=== PATIENT | male | born 1955 | race Caucasian/White ===

== ENCOUNTER 2018-05-26 17:30 | Outpatient (RCR) | payer BC, SELFPAY | END 2018-05-26 17:31 | disposition home or self-care (01) | LOC: PT 17:30 | PROVIDERS: Visit Provider Neurological Surgery | DX: M47.812 Spondylosis without myelopathy or radiculopathy, cervical region (principal) | CPT/HCPCS: 97010; 97012; 97014; 97110; 97140; 97163; G0283 ==

== ENCOUNTER → 2018-10-24 07:18 | Outpatient (CLI) | payer BC, SELFPAY ==
[2018-10-24 07:36] LABS: Basophils % 0.9 % (0.1-2.0); Eosinophils # 0.1 K/mm3 (0.0-0.4); Eosinophils % 2.2 % (0.1-12.0); Hematocrit 42.4 % (42.0-52.0); Hemoglobin 14.1 g/dL (14.1-18.0); Lymphocytes # 1.3 K/mm3 (0.7-4.5); Lymphocytes % 31.4 % (10-50); Mean Corpuscular HGB Conc 33.3 g/dL (31.8-35.4); Mean Corpuscular Hemoglobin 29.9 pg (27.0-31.2); Mean Corpuscular Volume 89.6 fl (80-94); Mean Platelet Volume 6.2 fl (7.4-10.4); Monocytes # 0.3 K/mm3 (0.1-1.0); Monocytes % 6.3 % (1.7-9.3); Neutrophils # 2.4 K/mm3 (1.8-7.8); Neutrophils % 59.2 % (37.0-80.0); Platelet Count 233 K/mm3 (142-424); Red Blood Count 4.73 M/mm3 (4.60-6.20); Red Cell Distribution Width 13.4 % (11.5-17.5); White Blood Count 4.1 K/mm3 (4.8-10.8)
[2018-10-24 08:37] LABS: Alanine Aminotransferase 35 U/L (12-78); Albumin Level 4.1 gm/dL (3.4-5.0); Albumin/Globulin Ratio 1.5 (1.1-1.8); Alkaline Phosphatase 63 U/L (46-116); Anion Gap 12.2 mEq/L (5-15); Aspartate Amino Transferase 19 U/L (15-37); Bilirubin,Total 0.4 mg/dL (0.2-1.0); Blood Urea Nitrogen 14 mg/dL (7-18); Calcium 8.8 mg/dL (8.5-10.1); Carbon Dioxide 30 mmol/L (21.0-32.0); Chloride 104 mmol/L (98-107); Chol/HDL Ratio 4.1 (1-3.5); Cholesterol 239 mg/dL (140-200); Creatinine,Serum 0.85 mg/dL (0.70-1.30); Estimated Glomerular Filt Rate 92 ml/min (>60); Free Thyroxine Index 2.3 ug/dL (5.93-13.13); GFR (African American) 111 ML/MIN (>60); Globulin 2.8 gm/dl (1.3-3.2); Glucose 100 mg/dL (74-106); HDL Cholesterol 59 mg/dL (27-67); LDL Cholesterol 169 mg/dL (0-130); Potassium 4.2 mmoL/L (3.5-5.1); Prostate Specific Ag Screen 3.6 ng/mL (0.0-4.0); Sodium 142 mmol/L (136-145); T4 (Thyroxine) 6.8 ug/dl (4.7-13.3); Thyroid Stimulating Hormone 1.55 uIU/ml (0.358-3.740); Total Protein,Serum 6.9 gm/dL (6.4-8.2); Triglycerides 54 mg/dL (30-200); Triiodothryronine (T3) Uptake 34 % (31-39); VLDL Cholesterol 11 mg/dL (0-40)
[2018-10-25 21:28] LABS: Rapid Plasma Reagin Ab Titer Non Reactive (NonRea<1:1); Vitamin B12 659 pg/mL (232-1245)
[2018-10-26 14:11] LABS: Vitamin D 25 Hydroxy 28.1 ng/mL (30.0-100.0)
== END ==
PROVIDERS: Visit Provider Internal Medicine Adolescent Medicine
DX: Z00.00 Encounter for general adult medical examination without abnormal findings (principal); R20.2 Paresthesia of skin
CPT/HCPCS: 36415; 80053; 80061; 82607; 82652; 84436; 84443; 84479; 85025; 86592; G0103

== ENCOUNTER → 2019-06-25 10:51 | Outpatient (CLI) | payer BC, SELFPAY ==
--- NOTE | 2019-06-25 11:01 | XR_ITS ---
PROCEDURE: XR LUMBAR SPINE MIN 4V CLINICAL INDICATION: LOW BACK PAIN with radiation down left leg,LUMBAR FACET ARTHROPATHY COMPARISON: DIRECTOR OF EDUCATION/O MRI-L-SPINE W/O from 09/30/2014 FINDINGS: There is normal curvature and alignment. L1 through L5 appear intact. Disc spaces are well maintained throughout except for minor narrowing at the L1-2 level. There is no pars defect. There are minor hypertrophic facet changes at the L4-5 and L5-S1 levels. The SI joints are normal. IMPRESSION: Mild degenerate facet changes lower lumbar spine along with minor degenerative disc disease L1-2 Dictated by: Dr. Clyde Reid MD 06/25/2019 11:27 Signed by: <Electronically signed by Dr. Clyde Reid MD in [place]> 06/25/2019 11:27
== END ==
PROVIDERS: PCP Internal Medicine Adolescent Medicine; Visit Provider Nurse Practitioner Family
DX: M54.42 Lumbago with sciatica, left side (principal); M47.816 Spondylosis without myelopathy or radiculopathy, lumbar region
CPT/HCPCS: 72110

== ENCOUNTER 2019-07-21 10:00 | Outpatient (RCR) | payer BC, SELFPAY ==
--- NOTE | 2019-06-08 13:41 | HMH.PTOPEV ---
PT Outpatient Evaluation Rehab PT Outpatient Evaluation Start: 06/08/19 10:57 Freq: Status: Active Protocol: Document 06/08/19 13:31 NICOLASAWIN (Rec: 06/08/19 13:41 SE [id number]) Electronically Signed By Ash Tai, PT 06/08/19 13:31 Outpatient Therapy Subjective History Subjective History This is the initial outpatient Physical therapy evaluation for Claudia Lee. Pt is a 63 y/o male referred to PT for c/o LBP w/ LLE pain and paresthesia. Pt reports pain began ~ may 28 but he does not remember any trauma. Pt atates he had some time off from work and was doing stuff around the house and began noticing pain when he returned to work. Pt reports on the he was in so much pain he felt locked up in his back . Pt reports pain in umbosacral area and pain into LLE to knee. Chief Complaint Pain,Paresthesia Symptom Type Ache,Throb,Sharp,Dull,Stabbing ,Burning,Numbness,Tingling Symptoms Relieved By Rest/Positioning Symptoms Aggravated By Sitting,Standing,Physical Activity,Walking,Lifting Prior Functional Limitations None Current Functional Limitations Lifting,Housework,Driving, Sleeping,Standing,Sitting, Recreation Activity,Walking Symptom Description Constant but Variable Level of pain today (0-10) 5 Pain scale - at its best (0-10) 3 Pain scale - at its worst (0-10) 8 Lumbopelvic Eval Posture Thoracic Spine Posture Standing Position Neutral Lumbar Spine Posture Standing Position Neutral Assistive device Assistive Devices None / NA Palapation tenderness left lumbar spinal tenderness Yes paraspinal tenderness Yes buttock tenderness Yes Lumbar/Sacral Palpation Findings Tenderness Accessory Movement L4 right L5 right Range of Motion Lumbar Spine Active Flexion Range of 80 Motion (degrees) Lumbar Spine Active Extension Range of 10 w/ pain Motion (degrees) Left Lumbar Spine Lateral Flexion Active 25 Range of Motion (degrees) Right Lumbar Spine Lateral Flexion 30 w/ pain Active Range of Motion (degrees) Lumbar Spine ROM Limitations Pain DTR
== END 2019-07-21 10:05 | disposition home or self-care (01) ==
LOC: PT 10:00
PROVIDERS: Visit Provider Internal Medicine Adolescent Medicine
DX: M54.42 Lumbago with sciatica, left side (principal)
CPT/HCPCS: 97010; 97012; 97014; 97110; 97140; 97163; 97164; G0283

== ENCOUNTER → 2019-09-21 15:36 | Outpatient (POV) | payer BC, SELFPAY | PROVIDERS: Visit Provider Dermatology | DX: Z00.00 Encounter for general adult medical examination without abnormal findings (principal) ==

== ENCOUNTER → 2020-03-07 10:46 | Outpatient (POV) | payer BC, SELFPAY | PROVIDERS: PCP Internal Medicine Adolescent Medicine; Visit Provider Physician Assistant | DX: Z00.00 Encounter for general adult medical examination without abnormal findings (principal) ==

== ENCOUNTER → 2020-05-04 14:13 | Outpatient (CLI) | payer BC, SELFPAY ==
[2020-05-06 06:13] LABS: PSA, Free 0.73 ng/mL; Prostate Specific Ag 3.1 ng/mL (0.0-4.0)
== END ==
PROVIDERS: Visit Provider Urology
DX: N40.0 Benign prostatic hyperplasia without lower urinary tract symptoms (principal); R97.20 Elevated prostate specific antigen [PSA]
CPT/HCPCS: 36415; 84153; 84154

== ENCOUNTER 2020-07-28 09:00 | Outpatient (RCR) | payer OTHER, SELFPAY | END 2020-07-28 09:05 | disposition home or self-care (01) | LOC: PT 09:00 | PROVIDERS: Visit Provider Orthopaedic Surgery | DX: M19.011 Primary osteoarthritis, right shoulder (principal) | CPT/HCPCS: 97010; 97014; 97016; 97033; 97110; 97112; 97140; 97163; 97164; G0283 ==

== ENCOUNTER → 2020-10-31 10:36 | Outpatient (CLI) | payer BC, SELFPAY ==
[2020-11-01 09:51] LABS: PSA, Free 0.44 ng/mL
== END ==
PROVIDERS: Visit Provider Urology
DX: R97.20 Elevated prostate specific antigen [PSA] (principal)
CPT/HCPCS: 36415; 84153; 84154

== ENCOUNTER → 2021-07-31 10:33 | Outpatient (CLI) | payer BC, SELFPAY | PROVIDERS: PCP Internal Medicine Adolescent Medicine; Visit Provider Nurse Practitioner | DX: Z20.822 Contact with and (suspected) exposure to COVID-19 (principal) | CPT/HCPCS: C9803; U0003; U0005 ==

== ENCOUNTER → 2021-11-26 15:41 | Outpatient (CLI) | payer BC, SELFPAY | PROVIDERS: Visit Provider Nurse Practitioner | DX: Z20.822 Contact with and (suspected) exposure to COVID-19 (principal) | CPT/HCPCS: C9803; U0003; U0005 ==

== ENCOUNTER → 2022-02-12 09:51 | Outpatient (POV) | payer BC, SELFPAY | PROVIDERS: Visit Provider Dermatology | DX: Z00.00 Encounter for general adult medical examination without abnormal findings (principal) ==

== ENCOUNTER → 2022-06-11 10:49 | Outpatient (POV) | payer BC, SELFPAY | PROVIDERS: Visit Provider Dermatology | DX: Z00.00 Encounter for general adult medical examination without abnormal findings (principal) ==

== ENCOUNTER → 2023-08-19 09:54 | Outpatient (POV) | payer BC, SELFPAY ==
--- OUTSIDE RECORDS SUMMARY | 2023-08-19 09:57 | XMS_ITS | Patient Health Record ---
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 Name Role Phone Ricardo Walters Primary Care Provider ALLERGIES Allergen (clinical drug ingredient) Drug/Non Drug Allergy documented on EMR Reaction Allergy Type Onset Date Status sulfamethoxazole / trimethoprim bactrim (uncoded) Unknown Allergy Active Percocet (uncoded) Unknown Allergy Active Demerol HCl Unknown Drug Allergy Activ e Keflex muscle spasms Drug Allergy Act herb Septra Unknown Drug Allergy Active clarithromycin Biaxin Unknown Drug Allergy Ac tive doxycycline doxycycline Unknown Drug Allergy Act herb penicillin Unknown Drug Allergy Active pravastatin pravastatin muscle spasms Drug Allergy Active Sulfac 10% Unknown Drug Allergy Active RESULTS Component Value Reference Range Notes CBC With Platelet And Differ ential Reviewed date:01/01/2023 09:35:41 AM Interpretation: Performing Lab: Notes/Report: CLIA: [id number] Joe Ornelas MD, [employer] [address] [facility] , [address], [place] [address] Test performed by [employer], to be WBC 4.2 3.8-11.5 K/uL Red Blood Cell Count (RBC) 4.59 4.20-5.70 M/mm3 Hemoglobin (Hgb) 14.1 13.1-17.5 gm/dL Hematocrit (HCT) 41.0 39.0-51.0 % MCV 89.3 79.0-99.0 fL MCH 30.7 26.9-35.0 pg MCHC 34.4 30.4-34.8 g/dL RDW 42.1 38.2-53.0 fL Platelet Count 223 137-397 K/cumm Neutrophils Automated 48.5 41.0-77.0 % Lymphocytes Automated 35.8 14.0-48.0 % Monocytes Automated 11.9 4.0-13.0 % Eosinophils Automated 2.9 0.0-8.0 % Basophils Automated 0.7 0.0-1.5 % Immature Granulocyte Automated 0.2 0.0-1.0 % Comprehensive Metabolic Pane l (CMP) Reviewed date:01/01/2023 09:35:41 AM Interpretation: Performing Lab: Notes/Report: Test performed by [facility] [address] [place] [address] , [address], [place] [address] Joe Ornelas MD, [employer] CLIA: [id number] Sodium 139 135-145 mEq/L Potassium 4.2 3.5-5.3 mEq/L Chloride 101 97-108 mEq/L CO2 30 22-32 mEq/L Glucose 96 65-99 mg/dL BUN 11 8-23 mg/dL Creatinine 0.86 0.70-1.30 mg/dL Calcium 9.8 8.6-10.4 mg/dL Protein 6.8 6.0-8.3 g/dL Albumin 4.9 3.5-5.3 g/dL Alkaline Phosphatase 61 40-129 IU/L ALT (SGPT) 24 <5-55 IU/L AST (SGOT) 24 <5-46 IU/L Bilirubin, Total 0.4 <0.2-1.2 mg/dL A/G Ratio 2.6 1.1-2.5 mg/dL Lipid Panel Reviewed date:01/01/2023 09:35:41 AM Interpretation: Performing Lab: Notes/Report: Joe Ornelas MD, [employer] CLIA: [id number] [address] [place] [address] , [place] [address] Test performed by [facility] Cholesterol 252 <200 mg/dL Triglycerides 212 <150 mg/dL HDL Cholesterol 47 >39 mg/dL Cholesterol / HDL Ratio 5.36 0.00-4.99 Ratio Non-HDL Cholesterol 205 <130 mg/dL LDL Cholesterol (Calculation) 163 <130 mg/dL LDL Cholesterol Levels* Less than 100 mg/dL Optimal 100 to 129 mg/dL Near Optimal/ Above Optimal 130 to 159 mg/dL Borderline High 160 to 189 mg/dL High 190 mg/dL and above Very High * Categories as recommended by the 2004 ATPIII guidelines LDL/HDL Ratio 3.5 <3.3 Ratio _ LDL Cholesterol Patient History _ Test Date: 12/30/2022 LDL Results: 163 Units: mg/dL % Change: - _ PSA Reviewed date:01/01/2023 09:35:41 AM Interpretation: Performing Lab: Notes/Report: Test performed by [facility] [address] [place] [address] [place] [address] Joe Ornelas MD, [employer] CLIA: [id number] PSA 1.080 <4.001 ng/mL This test is performed by the Pete ECLIA methodology. Values obtained with different assay methods or kits cannot be directly compared. Estimated Glomerular Filtrat ion Rate Reviewed date:01/01/2023 09:35:41 AM Interpretation: Performing Lab: Notes/Report: Test performed by [facility] [address] [place], [place] [address] [place] [place] [address] Joe Ornelas MD, [employer] CLIA: [id number] Estimated GFR (Black) 105 >59 mL/min/1.73m2 Estimated GFR (Other) 91 >59 mL/min/1.73m2 GFR Categories in Chronic Kidney Disease (CKD) GFR Category GFR (mL/min/1.73 sq. meters) Interpretation G1 90 or greater Normal or high* G2 60-89 Mild decrease* G3a 45-59 Mild to moderate decrease G3b 30-44 Moderate to severe decrease G4 15-29 Severe decrease G5 14 or less Kidney failure *In the absence of kidney damage, neither GFR category G1 or G2 fulfill the criteria for CKD (Kidney Int Suppl 2013; 3.1-150) The CKD-EPI calculation is intended for use in patients 18 years of age and older. Decreased calculation accuracy may be seen in patients taking medications that affect renal excretion, or in those patients with extremes in muscle mass or diet. LIPID PANEL, STANDARD (7600) Reviewed date:04/25/2023 02:37:08 PM Interpretation: Performing Lab:[facility] [employer] [id number] [facility] [email or web address], Dat [id number] [employer] Notes/Report: NON-FASTING; NON-FASTING; NON-FASTING; NON-FASTING CHOLESTEROL, TOTAL 202 <200 mg/dL HDL CHOLESTEROL 48 > OR = 40 mg/dL TRIGLYCERIDES 234 <150 mg/dL If a non-fasting specimen was collected, consider repeat triglyceride testing on a fasting specimen if clinically indicated. Cindy et al. J. of Clin. Lipidol. 2015;9:129-169. LDL-CHOLESTEROL 119 Reference range: <100 Desirable range <100 mg/dL for primary prevention; <70 mg/dL for patients with CHD or diabetic patients with > or = 2 CHD risk factors. LDL-C is now calculated using the Osorio-Destiny calculation, which is a validated novel method providing better accuracy than the Friedewald equation in the estimation of LDL-C. Osorio LEON et al. DRE. 2013;310(19): 1919-0536 (http://education.[employer]/faq/FAQ16 4) CHOL/HDLC RATIO 4.2 <5.0 (calc) NON HDL CHOLESTEROL 154 <130 mg/dL (calc) For patients with diabetes plus 1 major ASCVD risk factor, treating to a non-HDL-C goal of <100 mg/dL (LDL-C of <70 mg/dL) is considered a therapeutic option. COMPREHENSIVE METABOLIC PANE L (86345) Reviewed date:04/25/2023 02:37:08 PM Interpretation: Performing Lab:[facility] [employer]) [id number] [employer], Dat [id number] [employer] Notes/Report: NON-FASTING; NON-FASTING; NON-FASTING; NON-FASTING GLUCOSE 99 65-99 mg/dL Fasting reference interval UREA NITROGEN (BUN) 16 7-25 mg/dL CREATININE 0.95 0.70-1.35 mg/dL EGFR 89 > OR = 60 mL/min/1.73m2 The eGFR is based on the CKD-EPI 2020 equation. To calculate the new eGFR from a previous Creatinine or Cystatin C result, go to https://www.kidney.org/p [employer]isma[employer]essionals/ kdoqi/gfr%5Fcalculator BUN/CREATININE RATIO NOT APPLICABLE 6-22 (calc) SODIUM 138 135-146 mmol/L POTASSIUM 4.6 3.5-5.3 mmol/L CHLORIDE 103 98-110 mmol/L CARBON DIOXIDE 30 20-32 mmol/L CALCIUM 9.5 8.6-10.3 mg/dL PROTEIN, TOTAL 7.0 6.1-8.1 g/dL ALBUMIN 4.6 3.6-5.1 g/dL GLOBULIN 2.4 1.9-3.7 g/dL (calc) ALBUMIN/GLOBULIN RATIO 1.9 1.0-2.5 (calc) BILIRUBIN, TOTAL 0.4 0.2-1.2 mg/dL ALKALINE PHOSPHATASE 50 35-144 U/L AST 22 10-35 U/L ALT 23 9-46 U/L CREATINE KINASE, TOTAL (374) Reviewed date:04/25/2023 02:37:08 PM Interpretation: Performing Lab:[facility] [employer] [id number], Dat [id number] [employer] Notes/Report: NON-FASTING; NON-FASTING; NON-FASTING; NON-FASTING CREATINE KINASE, TOTAL 241 44-196 U/L CBC (INCLUDES DIFF/PLT) (639 9) Reviewed date:04/25/2023 02:37:08 PM Interpretation: Performing Lab:[facility] [employer]) [id number], Dat [id number] [employer] Notes/Report: NON-FASTING; NON-FASTING; NON-FASTING; NON-FASTING WHITE BLOOD CELL COUNT 4.5 3.8-10.8 Thousand/ uL RED BLOOD CELL COUNT 4.31 4.20-5.80 Million/uL HEMOGLOBIN 13.1 13.2-17.1 g/dL HEMATOCRIT 40.0 38.5-50.0 % MCV 92.8 80.0-100.0 fL MCH 30.4 27.0-33.0 pg MCHC 32.8 32.0-36.0 g/dL RDW 13.1 11.0-15.0 % PLATELET COUNT 205 140-400 Thousand/uL MPV 9.1 7.5-12.5 fL ABSOLUTE NEUTROPHILS 2619 5365-8486 cells/uL ABSOLUTE LYMPHOCYTES 1510 071-6675 cells/uL ABSOLUTE MONOCYTES 401 200-950 cells/uL ABSOLUTE EOSINOPHILS 72 15-500 cells/uL ABSOLUTE BASOPHILS 32 0-200 cells/uL NEUTROPHILS 58.2 LYMPHOCYTES 30.6 MONOCYTES 8.9 EOSINOPHILS 1.6 BASOPHILS 0.7 MEDICATIONS Medication SIG (Take, Route, Frequency, Duration) Notes Start Date End Date Status BusPIRone Hydrochloride 10 mg 1/2 tab orally three times a day as needed for 90 days Active D 2000 IU 50 mcg 1 tab(s) orally once a day for 30 day(s) 04/25/2023 Active IMMUNIZATIONS Vaccine Route Administration Date Status Comme nts SHINGRIX IM Intramuscular 01/03/2023 Administered SHINGRIX IM Intramuscular 04/23/2023 Administered Prevnar PCV-20 (Pneumococcal conjugate 20) IM Intramuscular 01/03/2023 Administered Influenza-Fluzone 3+years (NON-MEDICARE) IM Intramuscular 08/07/2015 Administered Influenza-Fluzone 3+years (NON-MEDICARE) IM Intramuscular 09/23/2017 Administered Hep A Adult 2 Dose IM Intramuscular 04/17/2019 Administere d FLUZONE 6MO - OLDER IM Intramuscular 07/31/2023 Administer ed Flublok IM Intramuscular 07/13/2020 Administered Flublok IM Intramuscular 08/05/2022 Administered Adacel (Tdap) IM Intramuscular 08/07/2015 Administered SOCIAL HISTORY Sex Assigned At : Social History Observation Description Sex Assigned At Unknown PROBLEMS Problem Type ICD Code Onset Dates Problem Status W/U Status Risk SNOMED Code Notes Problem Anxiety (F41.9) Active confirmed 945386 02 Problem Hyperlipemia, idiopathic familial (E78.5) Active confirmed 482673567 Problem GERD without esophagitis (K21.9) Active confirmed 176897445 Problem Abnormal EKG (R94.31) Active confirmed 545698849 Problem Anxiety, generalized (F41.1) Active confirmed 76155009 Problem Hyperlipidemia, unspecified hyperlipidemia type (E78.5) Active confirmed 71186840 Problem History of malignant melanoma (Z85.820) Active confirmed 578273657 Problem Right axis deviation (R94.31) Active confirmed 36463368 Problem Familial hypercholesterolemia (E78.01) Active confirmed 480275869 Problem Acute bilateral low back pain with left-sided sciatica (M54.42) Active confirmed 068444510 Problem 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) Active confirmed 018852370 Problem Paresthesia of left upper and lower extremity (R20.2) Active confirmed 96289591 Problem Lumbar facet arthropathy (M47.816) Active confirmed 375108308 Problem Metastasis to brain (C79.31) Active confirmed 66383797 VITAL SIGNS Heart Rate 78 /min 08/18/2023 Temperature 98.0 degrees Fahrenheit 08/18/2023 Blood pressure diastolic 84 mm Hg 08/18/2023 Height 6 ft 1 in in 08/18/2023 Blood pressure systolic 122 mm Hg 08/18/2023 Weight 186.9 lbs 08/18/2023 BMI 24.66 kg/m2 08/18/2023 Encounters Encounter Location Date Provider Diagnosis [facility] [address] [facility] [address] [place] [address] 12/30/2022 Ricardo Besson [facility] [address] [facility] [address] [place] [address] 07/21/2023 Ricardo Besson [facility] [address] [facility] [address] [place] [address] 01/03/2023 Ricardo Besson Familial hypercholesterolemia E78.01 ; Anxiety, generalized F41.1 ; Other specified transient cerebral ischemias G45.8 ; Routine medical exam Z00.00 and Encounter for immunization Z23 [facility] [address] [facility] [address] [place] [address] 04/23/2023 Ricardo Besson Hyperlipemia, idiopa thic familial E78.5 ; Familial hypercholesterolemia E78.01 ; Myalgia, unspecified site M79.10 ; Adverse effect of antihyperlipidemic and antiarteriosclerotic drugs, initial encounter T46.6X5A ; Encounter for immunization Z23 and Encounter for immunization Z23 [facility] [address] [place] [address] 07/31/2023 Ricardo Besson Encounter for immuni zation Z23 [facility] [address] [place] [address] 08/18/2023 Ricardo Besson Hyperlipidemia, unsp ecified hyperlipidemia type E78.5 and Anxiety F41.9 [facility] [address] [place] [address] 12/26/2022 Ricardo Besson Familial hypercholesterolemia E78.01 and History of malignant melanoma Z85.820 [facility] [address] [place] [address] 04/25/2023 Ricardo Besson Familial hypercholesterolemia E78.01 [facility] [address] [facility] [address] [place] [address] 05/08/2023 Ricardo Besson ASSESSMENTS Encounter Date Diagnosis Assessment Notes Treatment Notes Treatment Clinical Notes 01/03/2023 Anxiety, generalized (ICD-10 - F41.1) 01/03/2023 Familial hypercholesterolemia (ICD-10 - E78.01) Does meet criteria for treatment with ASCVD risk categorization of about 10%. Willing to try lower dose atorvastatin. Discussed possible side effects and new medication issues. New medication prescribed. Close follow-up to monitor for toxicity and effectiveness 04/23/2023 Hyperlipemia, idiopa thic familial (ICD-10 - E78.5) 04/25/2023 Familial hypercholesterolemia (ICD-10 - E78.01) 07/31/2023 Encounter for immunization (ICD-10 - Z23) 08/18/2023 Anxiety (ICD-10 - F41.9) Con tinue to take buspirone as needed. 08/18/2023 Hyperlipidemia, unspecified hyperlipidemia type (ICD-10 - E78.5) No lipid panel ordered today as patient has not been able to tolerate ezetimibe. Ezetimibe discontinued. 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 Check other labs as noted. Advised patient to empirically take vitamin D3 Gummies. Some trials have shown a benefit although others have not, certainly it would be a harmless intervention to see if he might have some improvement. If lipids look good on atorvastatin 10 may advise patient to go down to every other day dosing once labs are back. 01/03/2023 Routine medical exam (ICD-10 - Z00.00) Up-to-date with colon screening. Lifelong non-smoker. Excellent functional test status, depression screening negative. Does not need flu immunization, does need Prevnar and Shingrix. This was given today. No fall risk. 04/23/2023 Encounter for immunization (ICD-10 - Z23) 01/03/2023 Encounter for immunization (ICD-10 - Z23) 04/23/2023 Encounter for immunization (ICD-10 - Z23) PLAN OF TREATMENT Pending Test Test Name Order Date MRI : Cervical Spine 07/04/2017 Physical Therapy 09/18/2011 Physical Therapy 06/07/2019 Physical Therapy 10/03/2014 CTA : Carotids, With & Without Contrast 07/13/2020 M-Complete Blood Count Auto Diff 023 M-Comprehensive Metabolic Panel 12/26/19 23 M-Lipid Panel 12/26/2022 M-Prostate Specific Ag Screen 12/26/2022 Next Appt Details Provider Name:Ricardo Walters, 02/18/2024 08:45:00 AM, [address], [address], [place], [address], Insurance Providers Payer Name Payer Address Payer Phone Subscriber Number Group Number Insured Name Patient Relationship to Insured Coverage Start Date Coverage End Date [place] [address] [place] [address] [id number] Min Lee Self - patient is the insured [facility] [address] [place] [address] [id number] Min Lee Self - patient is the insured MEDICAL (GENERAL) HISTORY Medical History History ICD Code melanoma lower back mets to brain Chest pain with normal Cardiolite 6 Lumbar and cervical DDD Hyperlipidemia with TIA Normal colonoscopy 04/25-10-year follow-u p recommended Surgical History Surgery Date(Month/Year) Prostate Greenlight laser surgery 017 bowel resection 08/2017 [facility] surgery for BCC right mormonism 8 right shoulder; [facility]; Dr Hatfield 03/2020 Hospitalization History Reason Date(Month/Year) bowel obstruction TIA 02/2018
== END ==
PROVIDERS: Visit Provider Dermatology
DX: Z00.00 Encounter for general adult medical examination without abnormal findings (principal)

== ENCOUNTER 2023-12-09 20:28 | Outpatient (CLI) | payer MEDICARE, BC, SELFPAY ==
[2023-12-09 18:55] LABS: Chloride 103 mmol/L (98-107); Sodium 137 mmol/L (136-145)
[2023-12-09 18:56] LABS: Potassium 4.4 mmoL/L (3.5-5.1)
[2023-12-09 18:58] LABS: Blood Urea Nitrogen 16 mg/dl (9-20); Estimated Glomerular Filt Rate 97 ml/min (>60); GFR (African American) 117 ML/MIN (>60)
[2023-12-09 18:59] LABS: Anion Gap 10.4 mEq/L (5-15); Calcium 9.1 mg/dl (8.4-10.2); Carbon Dioxide 28 mmol/L (22.0-30.0); Glucose 91 mg/dl (74-100)
== END 2023-12-09 23:59 ==
LOC: LAB.DROPOF 20:30
PROVIDERS: PCP Student in an Organized Health Care Education/Training Program; Visit Provider Student in an Organized Health Care Education/Training Program
DX: R30.0 Dysuria (principal)
CPT/HCPCS: 80048; 87086

== ENCOUNTER 2024-07-14 09:21 | Outpatient (CLI) | payer MEDICARE, BC, SELFPAY ==
--- NOTE | 2024-07-14 09:29 | XR_ITS ---
FINAL REPORT CLINICAL HISTORY: POSTURAL DIZZINESS, CERVICALGIA COMPARISON: 08/09/2021 FINDINGS: CERVICAL SPINE 5 views were obtained. There is no acute fracture. Moderate degenerative changes are noted. There is 4 mm of retrolisthesis of C3 on C4. Fusion is noted at C6-7. Moderate to severe bilateral C3-4 neuroforaminal narrowing has progressed from prior. IMPRESSION: Moderate degenerative changes. Interval progression of C3-4 neuroforaminal narrowing. Reviewed, Interpreted and Dictated by Jose Amado III, MD Transcribed by Wanda Hammer Authenticated and [facility]
== END 2024-07-14 23:59 | disposition home or self-care (01) ==
LOC: RAD 09:24
PROVIDERS: PCP Internal Medicine Adolescent Medicine; Visit Provider Internal Medicine Adolescent Medicine
DX: R42 Dizziness and giddiness (principal); M54.2 Cervicalgia
CPT/HCPCS: 72050

== ENCOUNTER 2025-02-18 13:41 | Outpatient (CLI) | payer MEDICARE, BC, SELFPAY ==
--- OUTSIDE RECORDS SUMMARY | 2025-02-18 13:43 | XMS_ITS | Data Portability ---
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 POSTOPERATIVE DIAGNOSIS: BPH with trilobar hypertrophy and obstruction. PROCEDURE: Flexible local cystoscopy. SURGEON: Franko Carbajal MD ANESTHESIA: Intraurethral lidocaine jelly. INDICATIONS: Patient is here for followup of recurrence of obstructive urination symptoms. Approximately 7 years ago, had a GreenLight laser vaporization of the prostate. Unfortunately, symptoms are gradually reoccurred. He presents today for cystoscopy for further evaluation. OPERATIVE NOTE: After satisfactory position, genitalia were prepped and draped in the normal fashion. Xylocaine gel was instilled in the urethra. Penile clamp was placed. After adequate time, flexible cystoscope was introduced. Pendulous urethra was unremarkable. Surprisingly, his prostate and urethra looked completely obstructing and did not appear to have any surgical defects. He also had a significant median lobe. All seem to be symmetric. Bladder was coarsely trabeculated. Bladder was otherwise unremarkable. With reflection back to the bladder neck, he appeared to have significant intravesical extension of the median lobe. We discussed his best option would be GreenLight laser vaporization of the prostate. We will arrange. [id number] Not available 12/25/2023 04:57:50 Plan of Treatment Reminders Order Date Submit Date Provider Last Modified By Organization Details Last Modified Time Details Appointments RECHECK 2024 02:00P M FRANKO CARBAJAL MD Not available Not available Not available RECHECK 2024 10:30A M FRANKO CARBAJAL MD Not available Not available Not available Lab urinalysi s panel, auto [address] [facility], [address], [address], [place], [address], 01/17/2025 15:46:45 urinalysi s panel, auto 2023 024 [email or web address] [facility], [address], [address], [place], [address], 04/12/2024 11:47:14 urinalysi s panel, auto [address] [facility], [address], [address], [place], [address], 02/09/2024 12:00:17 Referral None recorded. Procedures None recorded. Surgeries None recorded. Imaging None recorded. Medication Orders doxycycli ne monohydra te 100 mg capsule 2024 025 [facility] #[id number], [address], [id number], 01/17/2025 15:47:00 nabumeton e 500 mg tablet 2024 025 [facility] #[id number], [address], [id number], 01/17/2025 15:46:57 finasteri de 5 mg tablet 2023 024 [facility] #[id number], [address], [id number], 02/09/2024 12:53:48 Patient TargetsNo targets recorded. Patient InstructionsNo instructions recorded. Reason for Referral None Reported. Results Created Date Observation Date Name Description Value Unit Range Abnormal Flag Note LastModifiedBy Organization Detail LastModifiedTime 02/09/20 24 02/09/2024 urina lysis panel , auto Unknown Analyte Clean Catch Not Available [facility] [address], [place], [address], 02/09/2024 11:07:03 02/09/20 24 02/09/2024 urina lysis panel , auto Unknown Analyte Yellow Not Available [facility] [address], [place], [address], 02/09/2024 11:07:03 02/09/20 24 02/09/2024 urina lysis panel , auto Unknown Analyte Slight ly Hazy Not Available [facility] [address], [place], [address], 02/09/2024 11:07:03 02/09/20 24 02/09/2024 urina lysis panel , auto Unknown Analyte 1.015 Not Available [facility] [address], [place], [address], 02/09/2024 11:07:03 02/09/20 24 02/09/2024 urina lysis panel , auto Unknown Analyte 1.003- 1.035 Not Available [facility] [address], [place], [address], 02/09/2024 11:07:03 02/09/20 24 02/09/2024 urina lysis panel , auto Unknown Analyte 8.0 Not Available [facility] [address], [place], [address], 02/09/2024 11:07:03 02/09/20 24 02/09/2024 urina lysis panel , auto Unknown Analyte 5.0-8. 0 Not Available [facility] [address], [place], [address], 02/09/2024 11:07:03 02/09/20 24 02/09/2024 urina lysis panel , auto Unknown Analyte Negati ve Not Available [facility] [address], [place], [address], 02/09/2024 11:07:03 02/09/20 24 02/09/2024 urina lysis panel , auto Unknown Analyte Negati ve Not Available [facility] [address], [place], [address], 02/09/2024 11:07:03 02/09/20 24 02/09/2024 urina lysis panel , auto Unknown Analyte Negati ve Not Available [facility] [address], [place], [address], 02/09/2024 11:07:03 02/09/20 24 02/09/2024 urina lysis panel , auto Unknown Analyte Negati ve Not Available [facility] [address], [place], [address], 02/09/2024 11:07:03 02/09/20 24 02/09/2024 urina lysis panel , auto Unknown Analyte Negati ve Not Available [facility] [address], [place], [address], 02/09/2024 11:07:03 02/09/20 24 02/09/2024 urina lysis panel , auto Unknown Analyte Negati ve Not Available [facility] [address], [place], [address], 02/09/2024 11:07:03 02/09/20 24 02/09/2024 urina lysis panel , auto Unknown Analyte Normal Not Available [facility] [address], [place], [address], 02/09/2024 11:07:03 02/09/20 24 02/09/2024 urina lysis panel , auto Unknown Analyte Normal Not Available [facility] [address], [place], [address], 02/09/2024 11:07:03 02/09/20 24 02/09/2024 urina lysis panel , auto Unknown Analyte Negati ve Not Available [facility] [address], [place], [address], 02/09/2024 11:07:03 02/09/20 24 02/09/2024 urina lysis panel , auto Unknown Analyte Negati ve Not Available [facility] [address], [place], [address], 02/09/2024 11:07:03 02/09/20 24 02/09/2024 urina lysis panel , auto Unknown Analyte Normal Not Available [facility] [address], [place], [address], 02/09/2024 11:07:03 02/09/20 24 02/09/2024 urina lysis panel , auto Unknown Analyte Normal 1 mg/dl Not Available [facility] [address], [place], [address], 02/09/2024 11:07:03 02/09/20 24 02/09/2024 urina lysis panel , auto Unknown Analyte Negati ve Not Available [facility] [address], [place], [address], 02/09/2024 11:07:03 02/09/20 24 02/09/2024 urina lysis panel , auto Unknown Analyte Negati ve Not Available [facility] [address], [place], [address], 02/09/2024 11:07:03 02/09/20 24 02/09/2024 urina lysis panel , auto Unknown Analyte 250 Prasanna/ul Not Available [facility] [address], [place], [address], 02/09/2024 11:07:03 02/09/20 24 02/09/2024 urina lysis panel , auto Unknown Analyte Negati ve Not Available [facility] [address], [place], [address], 02/09/2024 11:07:03 04/12/20 24 04/12/2024 urina lysis panel , auto Unknown Analyte Clean Catch Not Available [facility] [address], [place], [address], 04/12/2024 10:53:16 04/12/20 24 04/12/2024 urina lysis panel , auto Unknown Analyte Yellow Not Available [facility] [address], [place], [address], 04/12/2024 10:53:16 04/12/20 24 04/12/2024 urina lysis panel , auto Unknown Analyte Clear Not Available [facility] [address], [place], [address], 04/12/2024 10:53:16 04/12/20 24 04/12/2024 urina lysis panel , auto Unknown Analyte 1.005 Not Available [facility] [address], [place], [address], 04/12/2024 10:53:16 04/12/20 24 04/12/2024 urina lysis panel , auto Unknown Analyte 1.003- 1.035 Not Available [facility] [address], [place], [address], 04/12/2024 10:53:16 04/12/20 24 04/12/2024 urina lysis panel , auto Unknown Analyte 8.0 Not Available [facility] [address], [place], [address], 04/12/2024 10:53:16 04/12/20 24 04/12/2024 urina lysis panel , auto Unknown Analyte 5.0-8. 0 Not Available [facility] [address], [place], [address], 04/12/2024 10:53:16 04/12/20 24 04/12/2024 urina lysis panel , auto Unknown Analyte 25 Anton/ul Trace Not Available [facility] [address], [place], [address], 04/12/2024 10:53:16 04/12/20 24 04/12/2024 urina lysis panel , auto Unknown Analyte Negati ve Not Available [facility] [address], [place], [address], 04/12/2024 10:53:16 04/12/20 24 04/12/2024 urina lysis panel , auto Unknown Analyte Negati ve Not Available [facility] [address], [place], [address], 04/12/2024 10:53:16 04/12/20 24 04/12/2024 urina lysis panel , auto Unknown Analyte Negati ve Not Available [facility] [address], [place], [address], 04/12/2024 10:53:16 04/12/20 24 04/12/2024 urina lysis panel , auto Unknown Analyte Negati ve Not Available [facility] [address], [place], [address], 04/12/2024 10:53:16 04/12/20 24 04/12/2024 urina lysis panel , auto Unknown Analyte Negati ve Not Available [facility] [address], [place], [address], 04/12/2024 10:53:16 04/12/20 24 04/12/2024 urina lysis panel , auto Unknown Analyte Normal Not Available [facility] [address], [place], [address], 04/12/2024 10:53:16 04/12/20 24 04/12/2024 urina lysis panel , auto Unknown Analyte Normal Not Available [facility] [address], [place], [address], 04/12/2024 10:53:16 04/12/20 24 04/12/2024 urina lysis panel , auto Unknown Analyte Negati ve Not Available [facility] [address], [place], [address], 04/12/2024 10:53:16 04/12/20 24 04/12/2024 urina lysis panel , auto Unknown Analyte Negati ve Not Available [facility] [address], [place], [address], 04/12/2024 10:53:16 04/12/20 24 04/12/2024 urina lysis panel , auto Unknown Analyte Normal Not Available [facility] [address], [place], [address], 04/12/2024 10:53:16 04/12/20 24 04/12/2024 urina lysis panel , auto Unknown Analyte Normal 1 mg/dl Not Available [facility] [address], [place], [address], 04/12/2024 10:53:16 04/12/20 24 04/12/2024 urina lysis panel , auto Unknown Analyte Negati ve Not Available [facility] [address], [place], [address], 04/12/2024 10:53:16 04/12/20 24 04/12/2024 urina lysis panel , auto Unknown Analyte Negati ve Not Available [facility] [address], [place], [address], 04/12/2024 10:53:16 04/12/20 24 04/12/2024 urina lysis panel , auto Unknown Analyte Negati ve Not Available [facility] [address], [place], [address], 04/12/2024 10:53:16 04/12/20 24 04/12/2024 urina lysis panel , auto Unknown Analyte Negati ve Not Available [facility] [address], [place], [address], 04/12/2024 10:53:16 01/18/20 25 01/17/2025 urina lysis panel , auto Unknown Analyte Clean Catch Not Available [facility] [address], [place], [address], 01/17/2025 15:07:48 01/18/20 25 01/17/2025 urina lysis panel , auto Unknown Analyte Yellow Not Available [facility] [address], [place], [address], 01/17/2025 15:07:48 01/18/20 25 01/17/2025 urina lysis panel , auto Unknown Analyte Clear Not Available [facility] [address], [place], [address], 01/17/2025 15:07:48 01/18/20 25 01/17/2025 urina lysis panel , auto Unknown Analyte 1.010 Not Available [facility] [address], [place], [address], 01/17/2025 15:07:48 01/18/20 25 01/17/2025 urina lysis panel , auto Unknown Analyte 1.003 - 1.030 Not Available [facility] [address], [place], [address], 01/17/2025 15:07:48 01/18/20 25 01/17/2025 urina lysis panel , auto Unknown Analyte 7.0 Not Available [facility] [address], [place], [address], 01/17/2025 15:07:48 01/18/20 25 01/17/2025 urina lysis panel , auto Unknown Analyte 5.0 - 8.0 Not Available [facility] [address], [place], [address], 01/17/2025 15:07:48 01/18/20 25 01/17/2025 urina lysis panel , auto Unknown Analyte Negati ve Not Available [facility] [address], [place], [address], 01/17/2025 15:07:48 03/17/01/17/2025 urina lysis panel , auto Unknown Analyte Negati ve Not Available [facility] [address], [place], [address], 01/17/2025 15:07:48 01/18/20 25 01/17/2025 urina lysis panel , auto Unknown Analyte Negati ve Not Available [facility] [address], [place], [address], 01/17/2025 15:07:48 01/18/20 25 01/17/2025 urina lysis panel , auto Unknown Analyte Negati ve Not Available [facility] [address], [place], [address], 01/17/2025 15:07:48 01/18/20 25 01/17/2025 urina lysis panel , auto Unknown Analyte Negati ve Not Available [facility] [address], [place], [address], 01/17/2025 15:07:48 01/18/20 25 01/17/2025 urina lysis panel , auto Unknown Analyte Negati ve Not Available [facility] [address], [place], [address], 01/17/2025 15:07:48 01/18/20 25 01/17/2025 urina lysis panel , auto Unknown Analyte Normal Not Available [facility] [address], [place], [address], 01/17/2025 15:07:48 01/18/20 25 01/17/2025 urina lysis panel , auto Unknown Analyte Normal Not Available [facility] [address], [place], [address], 01/17/2025 15:07:48 01/18/20 25 01/17/2025 urina lysis panel , auto Unknown Analyte Negati ve Not Available [facility] [address], [place], [address], 01/17/2025 15:07:48 01/18/20 25 01/17/2025 urina lysis panel , auto Unknown Analyte Negati ve Not Available [facility] [address], [place], [address], 01/17/2025 15:07:48 01/18/20 25 01/17/2025 urina lysis panel , auto Unknown Analyte Normal Not Available [facility] [address], [place], [address], 01/17/2025 15:07:48 01/18/20 25 01/17/2025 urina lysis panel , auto Unknown Analyte Normal Not Available [facility] [address], [place], [address], 01/17/2025 15:07:48 01/18/20 25 01/17/2025 urina lysis panel , auto Unknown Analyte Negati ve Not Available [facility] [address], [place], [address], 01/17/2025 15:07:48 01/18/20 25 01/17/2025 urina lysis panel , auto Unknown Analyte Negati ve Not Available [facility] [address], [place], [address], 01/17/2025 15:07:48 01/18/20 25 01/17/2025 urina lysis panel , auto Unknown Analyte Negati ve Not Available [facility] [address], [place], [address], 01/17/2025 15:07:48 01/18/20 25 01/17/2025 urina lysis panel , auto Unknown Analyte Negati ve Not Available [facility] [address], [place], [address], 01/17/2025 15:07:48 Result Notes None recorded. Problems Name Problem SNOMED Code Status Onset Date Resolution Date Notes Provider Name and Address Organization Details Recorded Time Lower urinary tract symptoms due to benign prostatic hypertrop 37649219310 101 Active 2015 From Automated Load;Prov ider: Carbajal, Franko;S tatus: Active Not Available [facility] 6 06:08:39 Increased frequency of urination 474311545 Active 2015 From Automated Load;Prov ider: Carbajal, Franko;S tatus: Active Not Available [facility] 6 06:08:39 Problem Notes None recorded. Procedures Surgical History Date Name Laterality Status Provider Name and Address Organization Details Recorded Time 01/30/20 17 Cystourethroscopy completed Murelenga Marmolejo [facility] 02/21/2017 15:58:43 08/03/20 12 Other completed Tiffanie [facility] 01/27/2017 16:27:15 05/03/20 12 Other completed Tiffanie [facility] 01/27/2017 16:26:55 11/03/19 04 Other completed [facility] 01/27/2017 16:26:32 Imaging Results None recorded. Procedure Notes None recorded. Medical Equipment None Reported. Allergies Allergen ID Allergen Name Allergen Category Reaction Reaction Severity Criticality Documentation Date Start Date Code Code System Note Provider Name and Address Organization Details Recorded Time 513512 Product containin g penicilli n (product) medicatio n Not available Not available Not available 09/26/20162015 80776 8001 SNOMED Comme nt: Creat ed By: Ellen Barahona cia;C reate d Date: 2015 4:24: 49 PM; Not Available [facility] 6 11:12:00 706830 acetamino phen / oxycodone medicatio n Not available Not available Not available 09/26/20162015 11838 3 RxNorm Comme nt: Creat ed By: Ellen Barahona cia;C reate d Date: 2015 4:25: 07 PM; Not Available [facility] 6 13:31:44 127461 Keflex medicatio n Not available Not available Not available 09/26/2016201516 7 RxNorm Comme nt: Creat ed By: Ellen Barahona cia;C reate d Date: 2015 4:25: 36 PM; Not Available [facility] 6 13:31:44 [id number] Demerol medicatio n Not available Not available Not available 09/26/20162015 91417 1 RxNorm Comme nt: Creat ed By: Ellen Barahona cia;C reate d Date: 2015 4:24: 58 PM; Not Available [facility] 6 14:17:43 636583 Biaxin medicatio n Not available Not available Not available 09/27/20162015 37694 9 RxNorm Comme nt: Creat ed By: Ellen Barahona cia;C reate d Date: 2015 4:25: 25 PM; Not Available [facility] 6 08:27:35 [id number] Bactrim medicatio n Not available Not available Not available 02/21/2017 32237 9 RxNorm Liliam fraser [facility] 7 15:56:49 Medications Name Sig Start Date Stop Date Status Note LastModified by Organization Details LastModified Time atorvasta tin 20 mg tablet Take 1 tablet every day by oral route. active Not Available Not Available No t Available oxybutyni n chloride ER 10 mg tablet,ex tended release 24 hr Daily 03/25 completed Duration : 90 days;Gigi quency: daily;Me dication Descript ion: oxybutyn in; Dosage:1 ; Route:or al; refills: 3; Quantity :90 tablet, extended release Not Available Not Available Not Available Pyridium 200 mg tablet Take 1 tablet 3 times a day by oral route as directed for 14 days. 03/25 completed Not Available Not Available Not Available glucosami ne sulfate 500 mg tablet 03/25 completed Medicati on Descript ion: glucosam ine; Route:or al; refills: 0 Not Available Not Available Not Available tamsulosi n 0.4 mg capsule Daily 2022 active Not Available Not Available Not Avai lable doxycycli ne monohydra te 100 mg capsule Take 1 capsule twice a day by oral route for 30 days. 2024 active Not Available Not Available Not Avai lable Cipro 500 mg tablet Take 1 tablet twice a day by oral route as directed for 15 days. 01/18 completed Not Available Not Available Not Available finasteri de 5 mg tablet Take 1 tablet every day by oral route. 2023 active Not Available Not Available Not Avai lable nabumeton e 500 mg tablet Take 1 tablet(s ) twice a day by oral route. 2024 active Not Available Not Available Not Avai lable Bactrim DS 800 mg-160 mg tablet Take 1 tablet every 12 hours by oral route. 02/21 completed Not Available Not Available Not Available Enablex 15 mg tablet,ex tended release Daily 03/25 completed Duration : 30 days;Gigi quency: daily;Me dication Descript ion: darifena roya; Dosage:1 ; Route:or al; refills: 11; Quantity :30 tablet, extended release Not Available Not Available Not Available omeprazol e daily active Medicati on Descript ion: omeprazo le; refills: 0 Not Available Not Available Not Available Myrbetriq 25 mg tablet,ex tended release Daily 03/25 completed Duration : 90 days;Gigi quency: daily;Me dication Descript ion: mirabegr on; Dosage:1 ; Route:or al; refills: 3; Quantity :90 tablet, extended release Not Available Not Available Not Available Vitals Date Recorded Body height Body mass index (BMI) Body weight Provider Name and Address Organization Details Last Updated DateTime 01/19/2024 182.88 cm 24.7 kg/m2 65392.81 g Aury Frederick [facility] 01/19/2024 13:21:27 Date Recorded Body height Body mass index (BMI) Body weight Provider Name and Address Organization Details Last Updated DateTime 02/09/2024 182.88 cm 24.4 kg/m2 54788.63 g Blanco Staffordshaw [facility] 02/09/2024 11:06:44 Date Recorded Body height Body mass index (BMI) Body weight Provider Name and Address Organization Details Last Updated DateTime 01/17/2025 182.88 cm 25.1 kg/m2 12245.59 g Lurdes White [facility] 01/17/2025 15:06:41 Social History Question Answer Notes LastModified by Organizat ion Details LastModified Time Tobacco Smoking Status Never Smoker [facility]2017 16:25:50 Marital Status [email or web address] Informatio n not available 01/27/2017 What Was The Date Of Your Most Recent Tobacco Screening? 01/17/2025 [email or web address] Information not available 01/17/2025 Sex: Male Functional Status None recorded. Mental Status None recorded. Family History Relationship Description Onset Age of this Age Resolved Age Notes LastModified by Organization Details LastModified Time Unspecified Relation Family history of malignant neoplasm [email or web address] Not available 2016 16:25:41 Medical History Condition Response Allergies/Hayfever Y Anxiety Disorder Y Radiation Therapy Y Acid Reflux (GERD) Y Arthritis Y Depression Y Past Encounters Encounter ID Performer Location Encounter Start Date Encounter Closed Date Diagnosis/Indication Diagnosis SNOMED-CT Code Diagnosis ICD10 Code Diagnosis Note [id number] FRANKO CARBAJAL MD [facility] [address] [address] 01/27/2017 15:58:19 01/28/2017 09:27:26 Epididymitis 29838066 N45.1 Nocturia 345647752 R35.1 Increased frequency of urination 103390818 R35.0 we will arrange for flexible local cystoscopy . Further recommenda tions based upon those findings. [id number] FRANKO CARBAJAL MD SURGERY SCHEDULE [address] [place] [address] 01/29/2017 07:15:11 01/29/2017 07:16:58 [id number] FRANKO CARBAJAL MD [facility] [address] [address] 02/21/2017 15:38:54 02/24/2017 11:22:26 Epididymitis 29518772 N45.1 Benign pro static hyperplasia 101215113 N40.1 plan as above. Otherwise follow-up in 2 months [id number] FRANKO CARBAJAL MD [facility] [address] [address] 04/04/2017 15:57:55 04/07/2017 09:21:47 Benign prostatic hyperplasia with outflow obstruction 830545209 N40.1 He will call to schedule greenlight laser vaporizati on of the prostate at [facility]. [id number] FRANKO CARBAJAL MD [facility] [address] [place] [address] 01/29/2023 13:39:28 01/29/2023 15:32:41 Benign prostatic hyperplasia with outflow obstruction 551332049 N40.1 After discussion I suggest we try him on tamsulosin and see if this improves his voiding pattern. He will follow-up in 6 weeks [id number] FRANKO CARBAJAL MD [facility] [address] [address] 03/25/2023 13:18:09 03/25/2023 16:18:07 Benign prostatic hyperplasia with outflow obstruction 779662635 N40.1 As above he will follow-up on an as-needed basis. [id number] MD [facility] [address] [place] [address] 12/16/2023 13:56:56 12/16/2023 14:33:29 Benign prostatic hyperplasia with outflow obstruction 163242192 N40.1 We will arrange for flexible local cystoscopy . Chronic prostatitis 1990 5009 N41.1 [id number] FRANKO CARBAJAL MD SURGERY SCHEDULE [address] [place] [address] 12/24/2023 06:55:10 12/24/2023 06:55:54 [id number] MD [facility] [address] [place] [phone] 01/19/2024 13:00:14 01/19/2024 14:34:03 Benign prostatic hyperplasia with outflow obstruction 321096882 N40.1 Status post repeat greenlight laser vaporizati on of the prostate. He will follow-up in 3 weeks earlier if necessary [id number] MD [facility] [address] [place] [address] 02/09/2024 10:23:58 02/09/2024 11:59:26 Benign prostatic hyperplasia with outflow obstruction 013974656 N40.1 Status post repeat greenlight laser vaporizati on of the prostate. We discussed starting finasterid e in hopes to avoid any further surgical interventi on regarding his BPH. Follow-up 2 months [id number] MD [facility] [address] [place] [address] 04/12/2024 10:42:52 04/12/2024 11:47:52 Benign prostatic hyperplasia with outflow obstruction 362628296 N40.1 Doing very well. He will follow-up in 1 year with a PSA [id number] MD [facility] [address] [address] 01/17/2025 14:19:17 01/17/2025 15:47:26 Chronic prostatitis 60253334 N41.1 Health Concerns Section Related Observation LastModified by Organization Detai ls LastModified Time None Recorded Concern Status LastModified by Organization Details LastModified Time None Recorded Advance Directives Directive None Recorded Payers Encounter Date Sequence Insurance Name Policy Number Policy Quintana Covered Member ID Quintana Member ID Guarantor Name 12/24/2023 1 [place] Min L Jesus [id number] Min L [place] 12/24/2023 2 [place] [id number] Min L Forsyth [id number] Min L [place] 01/19/2024 1 [place] L [place] [id number] Min L Jesus 01/19/2024 2 [id number] Min L Forsyth [id number] Min L [place] 02/09/2024 1 [place] [id number] Min L [place] 02/09/2024 2 [id number] Min L [place] [id number] Min L Jesus 04/12/2024 1 [place] Jesus [id number] Min L Jesus 04/12/2024 2 [id number] Min L [place] [id number] Min L [place] 01/17/2025 1 [place] L [place] [id number] Min L [place] 01/17/2025 2 [id number] Min L [place] [id number] Min L [place] Notes Date Note Type Note Provider Name and Address Organization Details Recorded Time 01/19/2024 text/html Patient had greenlight laser vaporization of the prostate 4 days ago. He is here today for catheter removal. He feels well. He apparently did have some level of instability 1 day postop. It is unclear whether this was due to anesthesia or narcotic pain medication. At any rate that is all resolved. His catheter was removed without difficulty. FRANKO CARBAJAL MD [facility] [place], [address], [facility] 01/20/2024 00:36:22 02/09/2024 text/html Patient is here in follow-up 2 weeks after catheter removal for repeat greenlight laser vaporization of the prostate. He is voiding well but still having some urgency. Both urgency and nocturia have improved but he still have nocturia x 3-4. We discussed whether this started him on an anticholinergic but for now he would like to just observe this as he is seeing improvement FRANKO CARBAJAL MD [facility] [place], [address], [facility] 02/09/2024 12:00:44 04/12/2024 text/html Patient in 3 mon ths following repeat greenlight laser vaporization of the prostate. He had had previous for several years prior and had very regrowth. He now is back to baseline. He is very pleased. Typically has nocturia x 2 but drinks water up until bedtime. He has urgency has completely resolved. I started him on finasteride but apparently had some issues with fatigue while taking it and discontinued that. Urine today is unremarkable. Will move him to yearly follow-up. FRANKO CARBAJAL MD [facility] [place], [address], [facility] 04/12/2024 11:47:47 01/17/2025 text/html Patient is here with some dysuria symptoms. He had greenlight laser vaporization of the prostate by me a year ago. He continues to void with a good stream but for the last couple months has had some mild dysuria and very slight increased frequency. He typically has nocturia x 0. Has had no further urologic medications. He did have a urinalysis checked back in November and it was unremarkable as is the one today. His PSA on November 23 was 0.3. We discussed empirically treating him for chronic prostatitis. FRANKO CARBAJAL MD [facility] [place], [address], [facility] 01/17/2025 15:47:16
--- OUTSIDE RECORDS SUMMARY | 2025-02-18 13:43 | XMS_ITS | Continuity of Care Document ---
Author Organization [facility] Robyn cabral [facility] Address [address] [place] [address] Care Team Providers Care Public Health Outreach Worker Name Role Phone MONY BETH Primary Care Provider [phone] Assessment No assessment recorded. Plan of Treatment Reminders Order Date Submit Date Provider Last Modified By Organization Details Last Modified Time Details Appointments RECHECK 2024 02:00P M FRANKO CARBAJAL MD Not available Not available Not available RECHECK 2024 10:30A M FRANKO CARBAJAL MD Not available Not available Not available Lab urinalysi s panel, auto 2024 025 [facility], [address], [place], [address], 01/17/2025 15:46:45 Referral None recorded. Procedures None recorded. Surgeries None recorded. Imaging None recorded. Medication Orders doxycycli ne monohydra te 100 mg capsule 2024 025 [id number], [address], [phone], 01/17/2025 15:47:00 nabumeton e 500 mg tablet 2024 025 [id number], [address], [phone], 01/17/2025 15:46:57 Patient TargetsNo targets recorded. Patient InstructionsNo instructions recorded. Reason for Referral None Reported. Results Created Date Observation Date Name Description Value Unit Range Abnormal Flag Note LastModifiedBy Organization Detail LastModifiedTime 01/18/20 25 01/17/2025 urina lysis panel , auto Unknown Analyte Clean Catch Not Available [facility] [address], [place], [address], 01/17/2025 15:07:48 01/18/20 25 01/17/2025 urina lysis panel , auto Unknown Analyte Yellow Not Available [facility] [address], [place], [address], 01/17/2025 15:07:48 01/18/20 25 01/17/2025 urina lysis panel , auto Unknown Analyte Clear Not Available [facility] [address], [place], [address], 01/17/2025 15:07:48 01/18/20 25 01/17/2025 urina lysis panel , auto Unknown Analyte 1.010 Not Available [facility] [address], [place], [address], 01/17/2025 15:07:48 01/18/20 25 01/17/2025 urina lysis panel , auto Unknown Analyte 1.003 - 1.030 Not Available [facility] [address], [place], [address], 01/17/2025 15:07:48 01/18/20 25 01/17/2025 urina lysis panel , auto Unknown Analyte 7.0 Not Available [facility] [address], [place], [address], 01/17/2025 15:07:48 01/18/20 25 01/17/2025 urina lysis panel , auto Unknown Analyte 5.0 - 8.0 Not Available [facility] [address], [place], [address], 01/17/2025 15:07:48 01/18/20 25 01/17/2025 urina lysis panel , auto Unknown Analyte Negati ve Not Available [facility] [address], [place], [address], 01/17/2025 15:07:48 01/18/20 25 01/17/2025 urina lysis panel , auto Unknown Analyte Negati ve Not Available [facility] [address], [place], [address], 01/17/2025 15:07:48 01/18/20 25 01/17/2025 urina lysis panel , auto Unknown Analyte Negati ve Not Available [facility] [address], [place], [address], 01/17/2025 15:07:48 01/18/20 25 01/17/2025 urina lysis panel , auto Unknown Analyte Negati ve Not Available [facility] [address], [place], [address], 01/17/2025 15:07:48 01/18/20 25 01/17/2025 urina lysis panel , auto Unknown Analyte Negati ve Not Available [facility] [address], [place], [address], 01/17/2025 15:07:48 01/18/20 25 01/17/2025 urina lysis panel , auto Unknown Analyte Negati ve Not Available [facility] [address], [place], [address], 01/17/2025 15:07:48 01/18/20 25 01/17/2025 urina lysis panel , auto Unknown Analyte Normal Not Available [facility] [address], [place], [address], 01/17/2025 15:07:48 01/18/20 25 01/17/2025 urina lysis panel , auto Unknown Analyte Normal Not Available [facility] [address], [place], [address], 01/17/2025 15:07:48 01/18/20 25 01/17/2025 urina lysis panel , auto Unknown Analyte Negati ve Not Available [facility] [address], [place], [address], 01/17/2025 15:07:48 01/18/20 25 01/17/2025 urina lysis panel , auto Unknown Analyte Negati ve Not Available [facility] [address], [place], [address], 01/17/2025 15:07:48 01/18/20 25 01/17/2025 urina lysis panel , auto Unknown Analyte Normal Not Available [facility] [address], [place], [address], 01/17/2025 15:07:48 01/18/20 25 01/17/2025 urina lysis panel , auto Unknown Analyte Normal Not Available [facility] [address], [place], [address], 01/17/2025 15:07:48 01/18/20 25 01/17/2025 urina lysis panel , auto Unknown Analyte Negati ve Not Available [facility] [address], [place], [address], 01/17/2025 15:07:48 01/18/20 25 01/17/2025 urina lysis panel , auto Unknown Analyte Negati ve Not Available [facility] [address], [place], [address], 01/17/2025 15:07:48 01/18/20 25 01/17/2025 urina lysis panel , auto Unknown Analyte Negati ve Not Available [facility] [address], [place], [address], 01/17/2025 15:07:48 01/18/20 25 01/17/2025 urina lysis panel , auto Unknown Analyte Negati ve Not Available [facility] [address], [place], [address], 01/17/2025 15:07:48 Result Notes None recorded. 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 Procedures Surgical History Date Name Laterality Status Provider Name and Address Organization Details Recorded Time 01/30/20 17 Cystourethroscopy completed Murelene Jaleel [facility] 02/21/2017 15:58:43 08/03/20 12 Other completed Tiffanie [place] [facility] 01/27/2017 16:27:15 05/03/20 12 Other completed [facility] 01/27/2017 16:26:55 11/03/19 04 Other completed [facility] 01/27/2017 16:26:32 Imaging Results None recorded. Procedure Notes None recorded. Medical Equipment None Reported. Allergies Allergen ID Allergen Name Allergen Category Reaction Reaction Severity Criticality Documentation Date Start Date Code Code System Note Provider Name and Address Organization Details Recorded Time 404131 Product containin g penicilli n (product) medicatio n Not available Not available Not available 09/26/20162015 60588 8001 SNOMED Comme nt: Creat ed By: Ellen Barahona cia;C reate d Date: 2015 4:24: 49 PM; Not Available [facility] 6 11:12:00 173998 acetamino phen / oxycodone medicatio n Not available Not available Not available 09/26/2016201518 3 RxNorm Comme nt: Creat ed By: Ellen Barahona cia;C reate d Date: 2015 4:25: 07 PM; Not Available [facility] 6 13:31:44 737065 Keflex medicatio n Not available Not available Not available 09/26/2016201516 7 RxNorm Comme nt: Creat ed By: Ellen Barahona cia;C reate d Date: 2015 4:25: 36 PM; Not Available [facility] 6 13:31:44 039170 Demerol medicatio n Not available Not available Not available 09/26/20162015 70743 1 RxNorm Comme nt: Creat ed By: Ellen Barahona cia;C reate d Date: 2015 4:24: 58 PM; Not Available [facility] 6 14:17:43 837030 Biaxin medicatio n Not available Not available Not available 09/27/20162015 80735 9 RxNorm Comme nt: Creat ed By: Ellen Barahona cia;C reate d Date: 2015 4:25: 25 PM; Not Available [facility] 6 08:27:35 604251 Bactrim medicatio n Not available Not available Not available 02/21/2017 20092 9 RxNorm [facility] 15:56:49 Medications Name Sig Start Date [...] Updated DateTime 01/17/2025 182.88 cm 25.1 kg/m2 90532.59 g Lurdes White [facility] 01/17/2025 15:06:41 Social History Question Answer Notes LastModified by Organizat ion Details LastModified Time Tobacco Smoking Status Never Smoker Tiffanie Redmankarl fraser [facility] 01/27/2017 16:25:50 Marital Status [email or web address] Informatio n not available 01/27/2017 What Was The Date Of Your Most Recent Tobacco Screening? 01/17/2025 [email or web address] Information not available 01/17/2025 Sex: Male Functional [...] SNOMED-CT Code Diagnosis ICD10 Code Diagnosis Note [id number] FRANKO CARBAJAL MD [facility] [address] [place] [address] 01/17/2025 14:19:17 01/17/2025 15:47:26 Chronic prostatitis 97335416 N41.1 Health Concerns Section Related Observation LastModified by Organization Detai ls LastModified Time None Recorded Concern Status LastModified by Organization Details LastModified Time None Recorded Payers Encounter Date Sequence Insurance Name Policy Number Policy Quintana Covered Member ID Quintana Member ID Guarantor Name 01/17/2025 1 [place] Lee [id number] Min Lee 01/17/2025 2 [place] [id number] Min Lee [id number] Min Lee Notes Date Note Type Note Provider Name and Address Organization Details Recorded Time 01/17/2025 text/html Patient is here with some [...] him for chronic prostatitis. FRANKO CARBAJAL MD [address], [place], [address], [facility] 01/17/2025 15:47:16
--- NOTE | 2025-02-18 13:44 | MR_ITS ---
FINAL REPORT CLINICAL HISTORY: CHRONIC LEFT SIDED NECK PAIN, WORSENING. NUMBNESS DOWN LEFT ARM COMPARISON: None FINDINGS: Multi planar MR imaging was obtained of the cervical spine. There is abnormal decreased signal throughout the cervical discs. The vertebrae are of normal height. There is partial ankylosis of the C6 and C7 vertebral bodies, that may be postoperative or congenital. There is no malalignment. The cervical cord demonstrates normal signal and configuration. C2-C3: There is no evidence of significant disc bulge or protrusion. There is no significant facet hypertrophy. C3-C4: A moderate annular bulge is present with endplate hypertrophy, severe right and mild to moderate left neural foraminal narrowing. C4-C5: A moderate annular bulge is present with mild to moderate bilateral neural foraminal narrowing. C5-C6: A large annular bulge is present with endplate hypertrophy, moderate right and moderate to severe left neural foraminal narrowing. C6-C7: There is no evidence of significant disc bulge or protrusion. There is no significant facet hypertrophy. C7-T1: A moderate annular bulge is present with moderate to severe bilateral neural foraminal narrowing. IMPRESSION: Multilevel lumbar degenerative changes are present, most pronounced at the C5-6 and C7-T1 levels. 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 Reviewed, Interpreted and Dictated by Brenden Petty MD Transcribed by Jesusita Justice Authenticated and [facility]
== END 2025-02-18 23:59 | disposition home or self-care (01) ==
LOC: RAD 13:42
PROVIDERS: PCP Internal Medicine Adolescent Medicine; Visit Provider Internal Medicine Adolescent Medicine
DX: M54.2 Cervicalgia (principal); R20.2 Paresthesia of skin
CPT/HCPCS: 72141